=== PATIENT | female | born 1950 | race Caucasian/White ===

== ENCOUNTER 2019-12-16 13:34 | Emergency (ER) | payer MEDICARE, BC ==
[~2019-12-16] VITALS: Ht 165.1 cm; Wt 74.2 kg
[~2019-12-16 13:34] MED LIST: ACET-75 PO; ALBU8.5H8 IH; CELE-193 PO; CHOL500044 PO; DESV50TA PO; DEXT15LI38 PO; DOXY100C43 PO; DULO-31 PO; GLUC100017 PO; LAMO25TA62 PO; LEVO1CAP7 PO; LIOT5TAB10 PO; LISI-600 PO; METF500T PO; SIMV-42 PO; UBID100C16 PO; VITC500T PO; [UNRECOGNIZED DRUG - CODE] PO
[2019-12-16] MEDS ORDERED: CEPH250T PO (14:47)
== END 2019-12-16 14:55 | disposition home or self-care (01) ==
LOC: ER 13:34
DX: L03.113 Cellulitis of right upper limb (principal); M19.90 Unspecified osteoarthritis, unspecified site; F32.9 Major depressive disorder, single episode, unspecified; Z90.49 Acquired absence of other specified parts of digestive tract; Z60.2 Problems related to living alone; Z88.0 Allergy status to penicillin; Z79.899 Other long term (current) drug therapy
CPT/HCPCS: 99283

== ENCOUNTER 2022-01-09 06:03 | Emergency (ER) | payer MEDICARE, BC ==
[~2022-01-09] VITALS: Ht 165.1 cm; Wt 91.0 kg
[~2022-01-09 06:03] MED LIST changes: +ALBU8.5H17 IH; -ALBU8.5H8 IH; -LISI-600 PO; +LISI20TA28 PO
[2022-01-09 06:10] VITALS: BP 146/85
== END 2022-01-09 08:06 | disposition home or self-care (01) ==
LOC: ER 06:04
DX: S61.215A Laceration without foreign body of left ring finger without damage to nail, initial encounter (principal); J45.909 Unspecified asthma, uncomplicated; G47.30 Sleep apnea, unspecified; M19.90 Unspecified osteoarthritis, unspecified site; M79.7 Fibromyalgia; Z90.49 Acquired absence of other specified parts of digestive tract; Z98.890 Other specified postprocedural states; Z88.0 Allergy status to penicillin; Z79.2 Long term (current) use of antibiotics; Z79.899 Other long term (current) drug therapy; W26.8XXA Contact with other sharp object(s), not elsewhere classified, initial encounter; Y93.89 Activity, other specified; Y92.89 Other specified places as the place of occurrence of the external cause; Y99.8 Other external cause status
CPT/HCPCS: 12001; 99282

== ENCOUNTER 2023-06-21 00:43 | Emergency (ER) | payer MEDICARE, BC ==
[~2023-06-21] VITALS: Ht 165.1 cm; Wt 86.4 kg
[2023-06-21 00:58] VITALS: TEMP 98.5
[2023-06-21] MEDS ORDERED: ketorolac trometh inj. 60 MG/2 ML VIAL IM ONE (01:40)
[2023-06-21] MEDS ORDERED: orphenadrine citrate 60mg/2ml inj. IM ONE (01:40)
[2023-06-21] MEDS ORDERED: ondansetron 4mg rapidly disintigrating tab PO ONE (01:40)
[2023-06-21] MEDS ORDERED: ONDA4TAB12 PO (01:41)
[2023-06-21] MEDS ORDERED: CYCL-1 PO (01:41)
[2023-06-21 02:50] VITALS: BP 161/95; PULSE 78; RESP 16; O2SAT 96
== END 2023-06-21 02:51 | disposition home or self-care (01) ==
LOC: ER 00:45
DX: M79.10 Myalgia, unspecified site (principal); R11.0 Nausea; Z88.0 Allergy status to penicillin; Z88.2 Allergy status to sulfonamides; Z79.1 Long term (current) use of non-steroidal anti-inflammatories (NSAID); Z79.2 Long term (current) use of antibiotics; Z79.899 Other long term (current) drug therapy
CPT/HCPCS: 96372; 99284; J1885; J2360